=== PATIENT | male | born 2000 | race Caucasian/White ===

== ENCOUNTER 2021-01-13 01:34 | Emergency (ER) | payer BC ==
[~2021-01-13] VITALS: Ht 193 cm; Wt 92.0 kg
[2021-01-13 03:04] VITALS: BP 139/92
== END 2021-01-13 03:18 | disposition home or self-care (01) ==
LOC: ED 03:10
DX: F10.20 Alcohol dependence, uncomplicated (principal); Y90.0 Blood alcohol level of less than 20 mg/100 ml